=== PATIENT | female | born 1960 | race Caucasian/White ===

== ENCOUNTER 2020-06-08 13:26 | Emergency (ER) | payer BC ==
[~2020-06-08] VITALS: Ht 170.2 cm; Wt 68.0 kg
[~2020-06-08 13:26] MED LIST: ASPIR-LOW81 MG PO; BACTRIM DS TAB1 EACH PO; IBUPROFEN 600600 M1 PO; LEXAPRO 10 MG T10 M2 PO; NOHOMEMEDICATIONS; NORFLEX100 MG PO; PHENERGAN 25 MG25 M1 PO; PREDNISONE 10 M10 MG PO; SEROQUEL 25 MG25 M1 PO; ULTRAM 50MG TAB50 MG PO; XANAX 0.5 MG0.5 MG PO
[2020-06-08 15:29] LABS: ABSOLUTE NEUTROPHILS 2.8 thou/uL (1.4-8.2); BASOPHILS 0.9 % (0.0-2.0); EOSINOPHILS 3.3 % (0.0-3.0); HEMATOCRIT 35.2 % (37.0-47.0); HEMOGLOBIN 12.2 gm/dL (12.0-15.0); LYMPHOCYTES 40.6 % (24.0-44.0); MCH 31.2 pg (26.0-34.0); MCHC 34.5 g/dL (28.0-37.0); MCV 90.3 fL (80.0-100.0); MONOCYTES 10.9 % (1.0-8.0); PLATELET COUNT 265 thou/uL (150-400); POLYS 44.3 % (36.0-66.0); RDW 14.5 % (10.5-14.5); WBC 6.4 thou/uL (4.0-11.0)
[2020-06-08 15:38] LABS: CALCIUM 8.7 mg/dL (8.5-10.1); CREATININE 0.8 mg/dL (0.6-1.0); POTASSIUM 3.6 mmol/L (3.5-5.1)
[2020-06-08 15:46] LABS: ALBUMIN 3.3 g/dL (3.4-5.0); TOTAL BILIRUBIN 0.3 mg/dL (0.2-1.0); TOTAL PROTEIN 6.6 g/dL (6.4-8.2)
[2020-06-08] MEDS ORDERED: LEXAPRO5 MG PO (16:38)
[2020-06-08 16:49] VITALS: BP 104/65
== END 2020-06-08 16:52 | disposition home or self-care (01) ==
LOC: ER 13:26
PROVIDERS: Emergency Medicine
DX: R51 Headache (principal); R42 Dizziness and giddiness; R55 Syncope and collapse; M53.3 Sacrococcygeal disorders, not elsewhere classified; M25.552 Pain in left hip; K21.9 Gastro-esophageal reflux disease without esophagitis; I48.91 Unspecified atrial fibrillation; I25.2 Old myocardial infarction; Z79.899 Other long term (current) drug therapy; Z79.82 Long term (current) use of aspirin; Z88.6 Allergy status to analgesic agent; Z88.8 Allergy status to other drugs, medicaments and biological substances; Z91.012 Allergy to eggs; Y08.89XA Assault by other specified means, initial encounter; Y93.89 Activity, other specified; Y92.89 Other specified places as the place of occurrence of the external cause; Y99.8 Other external cause status